=== PATIENT | male | born 1975 | race Caucasian/White ===

== ENCOUNTER 2016-08-14 22:37 | Emergency (ER) | payer BC ==
[2016-08-14 22:41] VITALS: BP 150/105; BMI 37.1
[2016-08-14] MEDS ORDERED: NS 1000 ML 1,000 ML IV ONE (23:02)
[2016-08-14] MEDS ORDERED: TORADOL 30 MG VIAL IVP ONE (23:02)
--- NOTE | 2016-08-14 23:02 | DR.GENAD ---
HPI - PCP Primary Care Physician: NFD - Complaint/Symptoms Chief Complaint Doctors Comments: Patient admits to myalgia, headache, chills, fever and sore throat for three days Chief Complaint:: BODY ACHES, FEVER, HEADACHE , SORE THROAT, CHEST CONGESTION - Source History Provided: Patient - Mode of Arrival Mode of Arrival: Ambulatory - Timing Onset of Chief Complaint: 08/11/16 PMH - PMH Past Medical History: Yes Past Medical History: Kidney Stones Past Surgical History: Yes Surgical History: Lithotripsy - Family History History of Family Medical Conditions: No - Social History Type of Tobacco Use: None Does any household member use tobacco: No Alcohol Use: None Do you use any recreational Drugs:: No Lives With: Spouse Lives Where: Home - infectious screening Have you traveled outside the country in the last 6 months?: No Isolation: Standard ROS - Review of Systems Constitutional: No Symptoms Reported Eyes: No Symptoms Reported ENTM: No Symptoms Reported Respiratoy: No Symptoms Reported Cardiovascular: No Symptoms Reported Gastrointestinal/Abdominal: No Symptoms Reported Genitourinary: No Symptoms Reported Neurological: No Symptoms Reported Musculoskeletal: Other (myalgia) Integumentary: No Symptoms Reported Hematologic/Lymphatic: No Symptoms Reported Endocrine: No Symptoms Reported Psychiatric: No Symptoms Reported All Other Systems: Reviewed and Negative PE - Vital Signs Vitals: Temperature 99.4 F Pulse Rate 117 Respiratory Rate 18 Blood Pressure 150/105 O2 Sat by Pulse Oximetry 97 - General Limitations: No Limitations General Appearance: Alert, In No Apparent Distress - Head Head Exam: Normal Inspection, Atraumatic - Eyes Eye exam: Normal Appearance, PERRL, EOMI - ENT ENT Exam: Normal Exam External Ear Exam: Normal External Inspection TM/Canal Exam: Bilateral Normal Nose Exam: Normal Nose Exam, Sinus Tenderness Mouth Exam: Normal Inspection Throat Exam: Normal Inspection - Neck Neck Exam: Normal Inspection, Full ROM - Chest Chest Inspection: Normal Inspection, Symmetric Chest Wall Rise - Respiratory Respiratory Exam: Normal Lung Sounds Bilat Respiratory Exam: Bilateral Clear to Auscultation - Cardiovascular Cardiovascular Exam: Regular Rate, Normal Rhythm - Abdominal Exam Abdominal Exam: Normal Inspection, Normal Bowel Sounds Abdominal Tenderness: negative: RUQ, RLQ, LUQ, LLQ, Epigastrium, Suprapubic, Diffuse, Mild, Moderate, Severe, Other - Extremities Extremities Exam: Normal Inspection, Full ROM - Back Back Exam: Normal Inspection, Full ROM - Neurologic Neurological Exam: Alert, Oriented X3, CN II-XII Intact - Psychiatric Psychiatric Exam: Normal Affect, Normal Mood Course - Reevaluation 1st: Improved ROR - Labs Reviewed Laboratory Results Reviewed?: Yes (strep positive) Laboratory: Streptococcus Screen Positive (NEGATIVE) A 08/14/16 22:48 - Diagnosis Discharge Problem: Strep pharyngitis - Discharge Plan Condition: Stable - Follow ups/Referrals Follow ups/Referrals: NFD,None [Primary Care Provider] - 3 days - Instructions
[2016-08-14] MEDS ORDERED: NS 1000 ML 1,000 ML ONE (23:03)
[2016-08-14] MEDS ORDERED: TORADOL 30 MG VIAL ONE (23:03)
--- NOTE | 2016-08-14 23:22 | RAD ---
EXAM: Chest X-ray INDICATION: Cough COMPARISION: No prior TECHNIQUE: PA and Lat, 2 view FINDINGS: The lungs are clear and the lung volumes are within normal limits. No pleural effusion or pneumothor ax. The cardiac silhouette and mediastinum are normal. The regional skeleton is intact. IMPRESSION: Normal Chest X-Ray Reported By:
[2016-08-15] MEDS ORDERED: AMOXIL CAP 500 MG PO ONE ×2 (00:16→00:18)
== END 2016-08-15 00:47 | disposition home or self-care (01) ==
LOC: ER 22:51
DX: J02.0 Streptococcal pharyngitis (principal); J11.1 Influenza due to unidentified influenza virus with other respiratory manifestations
CPT/HCPCS: 71020; 87502; 87503; 87880; 96365; 96374; 99282; 99283; A4222; J1885

== ENCOUNTER 2020-12-30 18:05 | Observation (INO) ==
[2020-12-30 19:01] VITALS: BMI 35.5
--- NOTE | 2020-12-30 19:58 | DR.SOBA ---
HPI Time Seen Time Seen by Provider: 12/30/20 19:44 Primary Care Physician Primary Care Physician: SHEA HPI Comment HPI Comment: PATIENT IS 45YR OLD MALE IN ER WITH INCREASING SOB, PERSISTENT NAUSEA, VOMITING AND LOW O2 SAT. COVID 19 VIRUS POSITIVE SATURDAY, 4 DAYS AGO. RUNNING FEVER AT HOME. HE IS NOT HOLDING DOWN MEDICATIONS OR FLUID. DID HAVE KAITLIN E DIARRHEA THAT IS RESOLVING. PATIENT IS CONGESTED AND IS COUGHING. HIS CONDITION IS GETTING WORSE. Complaints Chief Complaint Doctors Comments: SOB, LOW O2 SAT ABDOMINAL PAIN, PERSISTENT NAUSEA, VOMITING. Chief Complaint:: PT AMBULATORY IN ED WITH C/O COVID POSITIVE SINCE SATURDAY AND WORSE TODAY. C/O SOB WITH LOW O2 SAT. COVID-19 Coronavirus risk:travel/contact w/high risk person: Yes Has patient experienced Coronavirus symptoms: Yes Coronavirus symptoms experienced: Fever, Coughing and Shortness of Breath Reviewed Nurses Notes Reviewed: Yes Source History Provided: Patient Mode of Arrival Mode of Arrival: Ambulatory Timing Onset of Chief Complaint: 12/26/20 Duration Duration: Days Context Onset:: At Rest PE Risk Factors:: None History of:: None Currently on:: Neither Prehospital Care:: None Modifying Factors Worsens:: Exertion and Lying Flat Improves:: Sitting Up Associated Signs and Symptoms Associated Signs and Symptoms: Fever, Cough, Nasal Congestion and Chest Pain If Chest Pain Quality: Sharp Location: Left Lower Chest and Substernal If Cough Cough: Nonproductive and Clear PMH PMH Past Medical History: Yes Past Medical History: Hypertension and Kidney Stones Past Surgical History: Yes Surgical History: Lithotripsy Family History History of Family Medical Conditions: Yes Family Medical History: ND, Coronary Artery Disease and Hypertension Social History Does patient currently use any type of tobacco product: No Have you used tobacco products in the last 12 months: No Type of Tobacco Use: None Does any household member use tobacco: No Alcohol Use: None Do you use any recreational Drugs:: No Lives With: Family Lives Where: Home Travel Risk Coronavirus risk:travel/contact w/high risk person: Yes Has patient experienced Coronavirus symptoms: Yes Coronavirus symptoms experienced: Fever, Coughing and Shortness of Breath Infectious screening In the last 2 months have you had wt loss of >10#?: NO Have you had fever, night sweats or hemotysis?: No Have you traveled outside the country in the last 6 months?: No Isolation: Droplet ROS Review of Systems Constitutional: See HPI, Fever, Weakness and Fatigue Eyes: No Symptoms Reported and See HPI ENTM: See HPI, Nose Discharge and Nose Congestion Respiratoy: See HPI, Non-Productive Cough and Short of Breath; negative Wheezing Cardiovascular: See HPI and Chest Pain Gastrointestinal/Abdominal: See HPI, Abdominal Pain, Nausea and Vomiting Genitourinary: No Symptoms Reported and See HPI; negative Dysuria, Frequency and Hematuria Neurological: See HPI, Headache and Weakness; negative Dizziness Musculoskeletal: See HPI and Muscle Pain; negative Back Pain Integumentary: No Symptoms Reported and See HPI; negative Change in Color, Rash and Juandice Hematologic/Lymphatic: No Symptoms Reported and See HPI; negative Easy Bruising and Swollen Glands Endocrine: No Symptoms Reported and See HPI; negative Increased Thirst and Increased Urine Psychiatric: No Symptoms Reported and See HPI All Other Systems: Reviewed and Negative PE Vital Signs Vitals: Temperature 97.8 F Pulse Rate [Right] 97 Pulse Rate 119 Respiratory Rate 26 Blood Pressure [Right Arm] 182/93 Blood Pressure 117/72 O2 Sat by Pulse Oximetry 91 General Limitations: No Limitations General Appearance: Alert and In No Apparent Distress Head Head Exam: Normal Inspection Eyes Eye exam: Normal Appearance and PERRL; negative Scleral Icterus and Conjunctival Injection ENT ENT Exam: Normal Exam, Normal Oropharynx, Normal External Ear Exam and TM's Normal Bilaterally Neck Neck Exam: Normal Inspection and Trachea Midline; negative Tenderness and Lymphadenopathy Chest Chest Inspection: Normal Inspection and Symmetric Chest Wall Rise; negative Tenderness Respiratory Respiratory Exam: Normal Lung Sounds Bilat; negative Accessory Muscle Use, Chest Wall Tenderness and Respiratory Distress Respiratory Exam: Bilateral: Rhonchi and Lower: Rhonchi Cardiovascular Cardiovascular Exam: Regular Rate, Normal Rhythm and Normal Heart Sounds; negative Systolic Murmur and Diastolic Murmur Abdominal Exam Abdominal Exam: Normal Bowel Sounds, Soft and Tenderness Abdominal Tenderness: Diffuse and Moderate Extremities Extremities Exam: Normal Inspection and Normal Capillary Refill Back Back Exam: Normal Inspection; negative (R) CVA Tenderness and (L) CVA Tenderness Neurologic Neurological Exam: Alert and Oriented X3; negative Motor Sensory Deficit Psychiatric Psychiatric Exam: Normal Affect and Normal Mood Skin Skin Exam: Warm, Dry, Intact and Normal Color MDM Additional Information Obtained Additional Information Obtained From: Old Records Differential Diagnosis Differential Diagnosis: Bronchitis, Hyponatremia, Mycardial Infarction, Pneumonia, Pneumothorax, Pulmonary embolism, Respiratory Insufficiency, Sinusitis and URI Differential Diagnosis Comment:: ABDOMINAL PAIN, BOWEL OBST. UTI, DIVERTICULITIS. COURSE Treatment Treatment: SEE ORDERS. Education/Counseling Education/Counseling: Patient and Family Educated On: Diagnosis and Needs for Follow Up ROR Labs Reviewed Laboratory Results Reviewed?: Yes Result Diagrams: 12/30/20 20:15 12/30/20 20:15 Laboratory: WBC 7.3 X10^3/uL (3.6-10.0) 12/30/20 20:15 RBC 5.69 X10^6/uL (4.7-6.0) 12/30/20 20:15 Hgb 15.9 g/dL (13.5-18.0) 12/30/20 20:15 Hct 46.8 % (42.0-54.0) 12/30/20 20:15 MCV 82.3 fL (80.0-100.0) 12/30/20 20:15 MCH 27.9 pg (27.0-34.0) 12/30/20 20:15 MCHC 33.9 g/dL (33.0-35.0) 12/30/20 20:15 RDW 14.7 % (11.6-16.5) 12/30/20 20:15 Plt Count 153 X10^3/uL (150.0-450.0) 12/30/20 20:15 MPV 9.0 fL (7.4-11.0) 12/30/20 20:15 Neut % (Auto) 84.8 % (42.0-75.0) H 12/30/20 20:15 Lymph % (Auto) 9.9 % (21.0-51.0) L 12/30/20 20:15 [place] % (Auto) 5.1 % (0.0-13.0) 12/30/20 20:15 Eos % (Auto) 0.0 % (0.9-2.9) L 12/30/20 20:15 Baso % (Auto) 0.2 % (0.2-1.0) 12/30/20 20:15 Neut # (Auto) 6.2 x10^3/uL (2.2-4.8) H 12/30/20 20:15 Lymph # (Auto) 0.7 X10^3/uL (1.3-2.9) L 12/30/20 20:15 [place] # (Auto) 0.4 x10^3/uL (0.3-0.8) 12/30/20 20:15 Eos # (Auto) 0.0 x10^3/uL (0.0-0.2) 12/30/20 20:15 Baso # (Auto) 0.0 X10^3/uL (0.0-0.1) 12/30/20 20:15 Absolute Nucleated RBC 0.0 /100WBC 12/30/20 20:15 D-Dimer 0.69 ug/ml (0.0-0.57) H* 12/30/20 20:15 Sample Site Lr 12/30/20 20:30 ABG pH 7.490 (7.35-7.45) H 12/30/20 20:30 ABG pCO2 37.0 mmHg (35.0-45.0) 12/30/20 20:30 ABG pO2 61.0 mmHg (80.0-100.0) L 12/30/20 20:30 ABG HCO3 28.2 mmol/L (22-26) H 12/30/20 20:30 ABG O2 Saturation 93.0 % (90-100) 12/30/20 20:30 ABG Base Excess 4.7 mmol/L (-2.0-2.0) H 12/30/20 20:30 Aris Test Pos 12/30/20 20:30 A-a Gradient 42.0 mmHg 12/30/20 20:30 FiO2 21 12/30/20 20:30 Blood Gas Comments Jami well ae 12/30/20 20:30 Sodium 136 mmol/L (136-145) 12/30/20 20:15 Corrected Sodium 137 mmol/L (136-145) 12/30/20 20:15 Potassium 4.0 mmol/L (3.5-5.1) 12/30/20 20:15 Chloride 98 mmol/L (98-107) 12/30/20 20:15 Carbon Dioxide 29.3 mmol/L (21-32) 12/30/20 20:15 BUN 15 mg/dL (7-18) 12/30/20 20:15 Creatinine 1.27 mg/dL (0.70-1.30) 12/30/20 20:15 Est GFR (MDRD) Af Amer > 60 (>60) 12/30/20 20:15 Est GFR (MDRD) Non-Af > 60 (>60) 12/30/20 20:15 Glucose 162 mg/dL (65-99) H 12/30/20 20:15 Calcium 8.4 mg/dL (8.5-10.1) L 12/30/20 20:15 Corrected Calcium 9.2 mg/dL (8.5-10.1) 12/30/20 20:15 Ferritin 588 ng/mL (26-388) H 12/30/20 20:15 Total Bilirubin 0.40 mg/dL (0.2-1.0) 12/30/20 20:15 AST 60 Units/L (15-37) H 12/30/20 20:15 ALT 90 Units/L (12-78) H 12/30/20 20:15 Alkaline Phosphatase 84 Units/L (46-116) 12/30/20 20:15 Creatine Kinase 63 Units/L (39-308) 12/30/20 20:15 CK-MB (CK-2) < 1.0 ng/mL (0-4.0) 12/30/20 20:15 CK/CKMB % Calc 1.6 % (<4) 12/30/20 20:15 Troponin I < 0.02 ng/mL (0-1.5) 12/30/20 20:15 C-Reactive Protein 66.10 mg/L (0-3.0) H 12/30/20 20:15 B-Natriuretic Peptide 38.4 pg/mL (0-79) 12/30/20 20:15 Total Protein 7.9 g/dL (6.4-8.2) 12/30/20 20:15 Albumin 3.0 g/dL (3.4-5.0) L 12/30/20 20:15 Globulin 4.9 g/dL (2.5-4.5) H 12/30/20 20:15 Albumin/Globulin Ratio 0.6 Ratio (1.1-2.1) L 12/30/20 20:15 Amylase 52 Units/L (25-115) 12/30/20 20:15 Lipase 218 Units/L (73-393) 12/30/20 20:15 Specimen Type Clean catch urine 12/30/20 21:05 Urine Color Yellow (YELLOW) 12/30/20 21:05 Urine Appearance Clear (CLEAR) 12/30/20 21:05 Urine pH 6.5 (5.0 - 8.0) 12/30/20 21:05 Ur Specific Walker 1.015 (1.000-1.030) 12/30/20 21:05 Urine Protein 3+ (NEGATIVE) 12/30/20 21:05 Urine Glucose (UA) Negative (NEGATIVE) 12/30/20 21:05 Urine Ketones 1+ (NEGATIVE) 12/30/20 21:05 Urine Occult Blood 1+ (NEGATIVE) 12/30/20 21:05 Urine Nitrite Negative (NEGATIVE) 12/30/20 21:05 Urine Bilirubin Negative (NEGATIVE) 12/30/20 21:05 Urine Urobilinogen 2+ (NORMAL) 12/30/20 21:05 Ur Leukocyte Esterase Negative (NEGATIVE) 12/30/20 21:05 Urine RBC 0-2 /HPF (0-3) 12/30/20 21:05 Urine WBC None seen /HPF (0-5) 12/30/20 21:05 Ur Squamous Epith Cells Few /HPF (NEGATIVE) 12/30/20 21:05 Urine Bacteria Trace /HPF (NEGATIVE) 12/30/20 21:05 Urine Mucus Moderate /HPF (NEGATIVE) 12/30/20 21:05 Ur Culture Indicated? No/not indicated 12/30/20 21:05 SARS-CoV-2 (PCR) Positive (NEGATIVE) A 12/30/20 21:20 Influenza Type A (PCR) Negative (NEGATIVE) 12/30/20 21:20 Influenza Type B (PCR) Negative (NEGATIVE) 12/30/20 21:20 RSV (PCR) Negative (NEGATIVE) 12/30/20 21:20 XRAY XRAY Interpreted by: Radiologist (REPORTS NOTED AND DISCUSSED WITH PATIENT.) and Self Opioid Opioid Risk Tool Age (Amador box if 16-45): Yes History of Preadolescent Sexual Abuse: No Total: 1 Total Score Risk Category: Low Risk Copyright: Kamlesh FIORE predicting aberrant behaviors Diagnosis Discharge Problem: COVID-19 virus infection Instructions Forms: Precautions for COVID19 Patient Portal Social Distancing
[2020-12-30] MEDS ORDERED: NS 1000 ML 1,000 ML IV ONE ×2 (20:01→23:52)
[2020-12-30] MEDS ORDERED: DEMEROL INJ IVP ONE (20:02)
[2020-12-30] MEDS ORDERED: ZOFRAN INJ 4 MG VIAL IVP ONE ×2 (20:02→23:57)
[2020-12-30] MEDS ORDERED: PEPCID 20 MG IV PREMIX* 20 MG/50 ML BAG IV ONE ×2 (20:03→20:25)
[2020-12-30] MEDS ORDERED: NS 1000 ML 1,000 ML ONE ×2 (20:24→23:56)
[2020-12-30] MEDS ORDERED: DEMEROL INJ ONE (20:24)
[2020-12-30] MEDS ORDERED: ZOFRAN INJ 4 MG VIAL ONE ×2 (20:24→23:57)
[2020-12-30 20:33] LABS: BASOPHILS % (AUTO) 0.2 % (0.2-1.0); HEMATOCRIT 46.8 % (42.0-54.0); HEMOGLOBIN 15.9 g/dL (13.5-18.0); LYMPHOCYTES # (AUTO) 0.7 X10^3/uL (1.3-2.9); LYMPHOCYTES % (AUTO) 9.9 % (21.0-51.0); MEAN CORPUSCULAR HEMOGLOBIN 27.9 pg (27.0-34.0); MEAN CORPUSCULAR HGB CONC 33.9 g/dL (33.0-35.0); MEAN CORPUSCULAR VOLUME 82.3 fL (80.0-100.0); MONOCYTES # (AUTO) 0.4 x10^3/uL (0.3-0.8); MONOCYTES % (AUTO) 5.1 % (0.0-13.0); NEUTROPHILS # (AUTO) 6.2 x10^3/uL (2.2-4.8); NEUTROPHILS % (AUTO) 84.8 % (42.0-75.0); PLATELET COUNT 153 X10^3/uL (150.0-450.0); RED BLOOD COUNT 5.69 X10^6/uL (4.7-6.0); RED CELL DISTRIBUTION WIDTH 14.7 % (11.6-16.5); WHITE BLOOD COUNT 7.3 X10^3/uL (3.6-10.0)
[2020-12-30 20:37] LABS: ABG ALLEN TEST POS; ABG BASE EXCESS 4.7 mmol/L (-2.0-2.0); ABG HCO3 28.2 mmol/L (22-26)
--- NOTE | 2020-12-30 20:49 | RAD ---
STUDY: FRONTAL VIEW CHESTCOMPARISON: NoneHISTORY: PT AMBULATORY IN ED WITH C/O COVID POSITIVE SINCE SATURDAY AND WORSE TODAY. C/O SOB WITH LOW O2 SATFINDINGS:No focal consolidation is seen.The heart size is within normal limits.The mediastinum is unremarkable.There is no evidence of pleural effusion or gross pneumothorax.The trachea is midline.IMPRESSION:1. No focal consolidation is seen.2. The heart size is normal.Electronically signed by: Antwan Benson (Dec 30, 2020 20:46:40)
[2020-12-30 20:52] LABS: ALANINE AMINOTRANSFERASE 90 Units/L (12-78); ALKALINE PHOSPHATASE 84 Units/L (46-116); AMYLASE 52 Units/L (25-115); ASPARTATE AMINO TRANSFERASE 60 Units/L (15-37); BLOOD UREA NITROGEN 15 mg/dL (7-18); CALCIUM 8.4 mg/dL (8.5-10.1); CARBON DIOXIDE 29.3 mmol/L (21-32); CHLORIDE 98 mmol/L (98-107); CKMB % 1.6 % (<4); COR CA(FOR HYPOALB) 9.2 mg/dL (8.5-10.1); COR NA(FOR HYPERGLY) 137 mmol/L (136-145); CREATINE KINASE 63 Units/L (39-308); CREATINE KINASE MB < 1.0 ng/mL (0-4.0); CREATININE 1.27 mg/dL (0.70-1.30); LIPASE 218 Units/L (73-393); SODIUM 136 mmol/L (136-145); TOTAL PROTEIN 7.9 g/dL (6.4-8.2); TROPONIN I < 0.02 ng/mL (0-1.5); eGFR NON BLACK RACES > 60 (>60)
[2020-12-30 21:28] LABS: BILIRUBIN,URINE NEGATIVE (NEGATIVE); BLOOD/HEMOGLOBIN,URINE 1+ (NEGATIVE); GLUCOSE, URINE NEGATIVE (NEGATIVE); KETONES,URINE 1+ (NEGATIVE); LEUKOCYTE ESTERASE ,URINE NEGATIVE (NEGATIVE); NITRITES,URINE NEGATIVE (NEGATIVE); PH,URINE 6.5 (5.0 - 8.0); PROTEIN,URINE 3+ (NEGATIVE); UROBILINOGEN,URINE 2+ (NORMAL)
[2020-12-30 21:36] LABS: APPEARANCE,URINE CLEAR (CLEAR); COLOR,URINE YELLOW (YELLOW)
[2020-12-30 21:37] LABS: BACTERIA,URINE TRACE /HPF (NEGATIVE); MUCUS,URINE MODERATE /HPF (NEGATIVE); RBC,URINE 0-2 /HPF (0-3); SQUAMOUS EPITHELIAL CELL,UR FEW /HPF (NEGATIVE)
--- NOTE | 2020-12-31 00:53 | CT ---
STUDY: CT ABDOMEN AND PELVIS WITHOUT IV CONTRASTCOMPARISON: NoneTECHNIQUE: Axial images were obtained of the abdomen and pelvis without IV contrast. Sagittal and coronal reformatted images were provided. All images were reviewed in a variety of windows and levels.RADIATION REDUCTION TECHNIQUE: Automated exposure control, adjustment of the mA or kV according to patient size, or iterative reconstruction techniques were used.HISTORY: abd painFINDINGS:Please note that lack of IV contrast does limit evaluation of the soft tissues and vascular detail. Exam is limited due to motion.The visualized lower lung zones demonstrates scattered areas of ground-glass opacities involving the right and left lung base which is worrisome for an infectious process. The heart size is within normal limits. There is no evidence of a pericardial effusion.The spleen, pancreas, adrenal glands, and kidneys are grossly unremarkable. Gallstone is noted. Diffuse steatosis is noted.Bilateral nonobstructing nephrolithiasis is noted.The stomach, small bowel, and colon are grossly unremarkable. A few scattered diverticula are seen without evidence of diverticulitis. There is a prominent calcification located at the origin of the appendix. There is no periappendiceal inflammatory changes to suggest secondary signs of acute appendicitis. The widest diameter of the appendix is 6 mm which is at the upper cutoff of normal.There is no evidence of retroperitoneal or mesenteric lymphadenopathy.The visualized bones demonstrate degenerative changes. There are no concerning lytic or blastic lesions identified.IMPRESSION:- Imaging features in the bilateral lower lung bases are worrisome for an infectious process. Correlation with laboratory viral testing may be obtained as clinically indicated.- Bilateral nonobstructing nephrolithiasis is noted.- Diffuse steatosis is noted- Gallstone is presentElectronically signed by: Antwan Benson (Dec 31, 2020 00:51:00)
[2020-12-31] MEDS ORDERED: COMPAZINE INJ IVP ONE (01:59)
[2020-12-31] MEDS ORDERED: NS 100 ML IV 100 ML IV ONE (02:00)
[2020-12-31] MEDS ORDERED: NS 100 ML IV 100 ML ONE ×3 (02:00→14:48)
[2020-12-31] MEDS ORDERED: COMPAZINE INJ ONE (02:02)
--- NOTE | 2020-12-31 02:53 | CT ---
STUDY: CTA CHEST WITH IV CONTRASTCOMPARISON: NoneTECHNIQUE: axial images were acquired of the chest with IV contrast for a CT angiogram. Coronal and sagittal images were provided. All images were reviewed in a variety of windows and levels. 3D 8 mm thick MIPS images were provided.RADIATION REDUCTION TECHNIQUE: Automated exposure control, Adjustment of the mA and/or kV according to patient size, or iterative reconstruction techniques were used. 8 mm thick axial MIPS images were provided.HISTORY: ELEVATED D-DIMER, SOBFINDINGS:CHEST:THYROID GLANDS: The thyroid gland is unremarkable.HEART AND VESSELS: The heart size is within normal limits.There is no evidence of pericardial effusion. Thoracic aorta is normal size without evidence of an aneurysm or dissection.Main pulmonary artery size is within normal limits. There are no filling defect seen within the visualized pulmonary arteries to suggest a pulmonary embolism.LYMPH NODES: There is no evidence of axillary, mediastinal, or hilar lymphadenopathy.AIRWAY: The trachea and mainstem bronchi are patent.No intraluminal lesions are seen.LUNGS: Demonstrates scattered areas of ground-glass opacities involving the subpleural surface and major fissures.ESOPHAGUS: The esophagus is grossly unremarkable.BONES: The visualized bones demonstrate degenerative changes. There are no concerning lytic or blastic lesions identified.UPPER ABDOMINAL STRUCTURES: The visualized upper abdominal structures demonstrates gallstones. Steatosis is noted.IMPRESSSION:1. No evidence of pulmonary embolism, thoracic aortic aneurysm, or dissection2. Heart size is normal and there is no evidence of pericardial effusion3. The above findings demonstrate COMMON CT imaging features of COVID-19 pneumonia. However, differential diagnosis should include, but is not limited to, influenza pneumonia, organizing pneumonia, or possible drug toxicity. Clinical correlation with laboratory viral testing may be obtained as clinically indicated. Reference: Gabriel et al. Radiology. 2020Electronically signed by: Antwan Benson (Dec 31, 2020 02:51:36)
[2020-12-31] MEDS ORDERED: NS 1000 ML 1,000 ML ONE (05:48)
[2020-12-31] MEDS: NS 1000 ML 1,000 ML IV SCH ×2 (05:57→21:36)
[2020-12-31] MEDS ORDERED: TORADOL 30 MG VIAL ONE (06:47)
[2020-12-31] MEDS ORDERED: TORADOL 30 MG VIAL IVP ONE (06:50)
[2020-12-31] MEDS ORDERED: ZOFRAN INJ 4 MG VIAL IVP PRN (07:06)
[2020-12-31] MEDS ORDERED: TORADOL 30 MG VIAL IVP PRN (07:06)
[2020-12-31] MEDS ORDERED: TUSSIONEX PENNKINETIC SUSP PO PRN (07:06)
[2020-12-31] MEDS ORDERED: REMDESIVIR 200 MG in NS 250 ML IV 250 ML IV ONE (07:06)
[2020-12-31] MEDS ORDERED: REMDESIVIR IV ONE (07:33)
[2020-12-31] MEDS ORDERED: NS 250 ML IV 250 ML IV ONE ×2 (07:34→11:20)
[2020-12-31] MEDS ORDERED: SOLU-Medrol 40 MG VIAL IVP SCH (08:00)
[2020-12-31] MEDS ORDERED: TRICOR TAB 160 MG ONE (08:07)
[2020-12-31] MEDS ORDERED: ZINC SULFATE ONE (08:07)
[2020-12-31] MEDS ORDERED: ZOSYN VIAL 3.375 GRAMS IV ONE ×2 (08:07→16:18)
[2020-12-31] MEDS ORDERED: VITAMIN D3 125 mcg (5,000 UNITS) ONE (08:07)
[2020-12-31] MEDS ORDERED: SOLU-Medrol 40 MG VIAL ONE ×2 (08:07→14:48)
[2020-12-31] MEDS ORDERED: ROBITUSSIN DM ONE ×2 (08:07→14:48)
[2020-12-31] MEDS ORDERED: ROCEPHIN 1 GRAM IV PREMIX 1 G/50 ML IV.SOLN. IV ONE (08:08)
[2020-12-31] MEDS ORDERED: PEPCID 20 MG IV PREMIX* 20 MG/50 ML BAG IV ONE (08:08)
[2020-12-31] MEDS ORDERED: NS 100 ML IV + SPIKE MINIBAG* 100 ML IV ONE ×2 (08:08→16:18)
[2020-12-31] MEDS ORDERED: NS 50 ML IV 50 ML IV ONE (08:09)
[2020-12-31] MEDS ORDERED: ASCORBIC ACID INJ MULTI-DOSE VIAL IV ONE ×2 (08:09→14:47)
[2020-12-31] MEDS ORDERED: LOVENOX INJ 30 MG SYR SC ONE (08:10)
[2020-12-31] MEDS: TRICOR TAB 160 MG PO SCH (08:30)
[2020-12-31] MEDS: ZINC SULFATE PO SCH ×2 (08:30→21:37)
[2020-12-31] MEDS: VSL#3 PO SCH (09:00)
[2020-12-31] MEDS ORDERED: VITAMIN A PO SCH (09:00)
[2020-12-31] MEDS ORDERED: ROCEPHIN 1 GRAM IV PREMIX 1 G/50 ML IV.SOLN. IV SCH (09:00)
[2020-12-31] MEDS ORDERED: PEPCID 20 MG IV PREMIX* 20 MG/50 ML BAG IV SCH (09:00)
[2020-12-31] MEDS: ROBITUSSIN DM PO SCH ×3 (09:00→20:25)
[2020-12-31] MEDS ORDERED: VITAMIN D (1.25MG) PO SCH (09:00)
[2020-12-31] MEDS: TOPROL XL PO SCH (09:00)
[2020-12-31] MEDS: ASCORBIC ACID INJ MULTI-DOSE VIAL 1,500 MG in NS 100 ML IV 100 ML IV SCH ×3 (09:10→20:24)
[2020-12-31] MEDS: LOVENOX INJ 30 MG SYR SC SCH ×2 (09:27→21:36)
[2020-12-31] MEDS: ZOSYN VIAL 3.375 GRAMS 3.375 G in NS 100 ML IV + SPIKE MINIBAG* 100 ML IV SCH ×3 (09:30→21:37)
[2020-12-31] MEDS ORDERED: LEVSIN/MAALOX/LIDOC VISC PO PRN (10:48)
--- NOTE | 2020-12-31 10:52 | DR.H&P ---
H&P - History & Physical for Day of: H&P Date: 12/31/20 - Chief Complaint Chief Complaint: N/V, WEAKNESS, SOB, CCC COVID 19+ - History of Present Illness History of Present Illness: PT IS 45M ER ADMISSION WITH CO INCREASING SOB, PERSISTENT NAUSEA, VOMITING AND LOW O2 SAT. COVID 19 VIRUS POSITIVE SATURDAY, 4 DAYS AGO. RUNNING FEVER AT HOME. HE IS NOT HOLDING DOWN MEDICATIONS OR FLUID. DID HAVE SOME DIARRHEA THAT IS RESOLVING. PATIENT IS CONGESTED AND IS COUGHING. HIS CONDITION IS GETTING WORSE. - Past Medical History Past Medical History: Hypertension, Kidney Stones - Past Surgical History Surgical History: Lithotripsy - Family History Family Medical History: Hypertension - Social History Does patient currently use any type of tobacco product: No Have you used tobacco products in the last 12 months: No Type of Tobacco Use: None Does any household member use tobacco: No Alcohol Use: None Drug Use: None - Medications Home Medications: No Known Drug Allergies Allergy (Verified 12/30/20 19:04) CONTINUE taking the following medications albuterol sulfate 5 mg INHALATION Q4H PRN 12/30/20 [History] azithromycin 250 mg PO DAILY 12/30/20 [History] famotidine 20 mg PO BID 12/30/20 [History] ivermectin 12 mg PO DAILY 12/30/20 [History] methylprednisolone 4 mg PO DIRECTED 12/30/20 [History] metoprolol succinate 50 mg PO DAILY 12/30/20 [History] - Review of Systems Constitutional: Weakness, Malaise Eyes: No Symptoms Reported ENT: No Symptoms Reported Respiratory: Cough, Shortness of Breath, SOB with Excertion Cardiovascular: Chest Pain (WITH COUGH) Gastrointestinal: Nausea, Vomiting, Abdominal Pain, Diarrhea Genitourinary: No Symptoms Reported Musculoskeletal: No Symptoms Reported Skin: No Symptoms Reported Neurological: No Symptoms Reported - Physical Exam Vital Signs: Temperature 97.8 F Pulse Rate [Right] 81 Pulse Rate 119 Respiratory Rate 24 Blood Pressure [Right Arm] 169/90 Blood Pressure 117/72 O2 Sat by Pulse Oximetry 91 Oriented: Normal Eyes: Normal Ear: Normal Nose: Normal Throat: Normal Respiratory: Diminished Throughout Cardiovascular: Normal : Normal Auscultation: Bowel Sounds: Normal Palpation: Normal Tenderness: RUQ, Epigastric Skin: Decreased Turgur Musculoskeletal: Normal Psychiatric: Anxiety Affect: Anxious Speech Pattern: Clear, Appropriate - Assessment/Plan (1) Pneumonia due to COVID-19 virus Status: Acute Plan: ADMIT, COVID ISOLATION, IV ATBX. REMESIVIR, IV SOLUMEDROL. LOVENOX, CTA OF CHEST IN ER ON ADMISSION. RESP THERAPY, SUPPLEMENTAL O2, DUO NEBS. CARDIAC MONITORING, IV HYDRATIONN BP CONTROL. VERIFY HOME MEDICATION (2) COVID-19 virus infection Status: Acute (3) Acute gastritis Status: Acute (4) Hypertension Status: Acute - Allergies Allergies/Adverse Reactions: Allergies Allergy/AdvReac Type Severity Reaction Status Date / Time No Known Drug Allergies Allergy Verified 12/30/20 19:04
[2020-12-31 11:08] LABS: BASOPHILS % (AUTO) 0.2 % (0.2-1.0); HEMATOCRIT 44.9 % (42.0-54.0); HEMOGLOBIN 15.3 g/dL (13.5-18.0); LYMPHOCYTES # (AUTO) 0.9 X10^3/uL (1.3-2.9); LYMPHOCYTES % (AUTO) 12.9 % (21.0-51.0); MEAN CORPUSCULAR HEMOGLOBIN 27.7 pg (27.0-34.0); MEAN CORPUSCULAR HGB CONC 34.1 g/dL (33.0-35.0); MEAN CORPUSCULAR VOLUME 81.3 fL (80.0-100.0); MEAN PLATELET VOLUME 8.8 fL (7.4-11.0); MONOCYTES # (AUTO) 0.2 x10^3/uL (0.3-0.8); NEUTROPHILS # (AUTO) 5.6 x10^3/uL (2.2-4.8); NEUTROPHILS % (AUTO) 83.9 % (42.0-75.0); PLATELET COUNT 134 X10^3/uL (150.0-450.0); RED BLOOD COUNT 5.53 X10^6/uL (4.7-6.0); RED CELL DISTRIBUTION WIDTH 14.4 % (11.6-16.5); WHITE BLOOD COUNT 6.6 X10^3/uL (3.6-10.0)
[2020-12-31] MEDS ORDERED: BENADRYL INJ 50 MG VIAL ONE (11:20)
[2020-12-31] MEDS ORDERED: ZITHROMAX INJ 500 MG VIAL IV ONE (11:20)
[2020-12-31] MEDS ORDERED: PROTONIX INJ 40 MG VIAL ONE (11:20)
[2020-12-31 11:24] LABS: ALANINE AMINOTRANSFERASE 75 Units/L (12-78); ALBUMIN 2.7 g/dL (3.4-5.0); ALKALINE PHOSPHATASE 77 Units/L (46-116); ASPARTATE AMINO TRANSFERASE 45 Units/L (15-37); BLOOD UREA NITROGEN 12 mg/dL (7-18); CALCIUM 8.3 mg/dL (8.5-10.1); CARBON DIOXIDE 27.8 mmol/L (21-32); CHLORIDE 100 mmol/L (98-107); COR CA(FOR HYPOALB) 9.3 mg/dL (8.5-10.1); COR NA(FOR HYPERGLY) 138 mmol/L (136-145); CREATININE 1.06 mg/dL (0.70-1.30); SODIUM 137 mmol/L (136-145); TOTAL PROTEIN 7.6 g/dL (6.4-8.2); eGFR NON BLACK RACES > 60 (>60)
[2020-12-31] MEDS: BENADRYL INJ 50 MG VIAL IVP SCH ×2 (11:29→22:20)
[2020-12-31] MEDS: PROTONIX INJ 40 MG VIAL IVP SCH ×2 (11:30→20:26)
[2020-12-31 12:09] LABS: ABG ALLEN TEST POS; ABG BASE EXCESS 3.5 mmol/L (-2.0-2.0); ABG HCO3 27.8 mmol/L (22-26)
[2020-12-31] MEDS: ZITHROMAX INJ 500 MG VIAL 500 MG in NS 250 ML IV 250 ML IV SCH (14:13)
[2020-12-31] MEDS: SOLU-Medrol 125 MG VIAL IVP SCH ×2 (14:57→21:36)
[2020-12-31] MEDS: PROVENTIL NEB TX 0.083% 2.5MG/ 3ML IN PRN (20:36)
[2020-12-31] MEDS: PULMICORT NEB TX 0.5 MG NEB SCH (20:36)
[2020-12-31] MEDS: BROVANA IN SCH (20:36)
[2021-01-01] MEDS: ASCORBIC ACID INJ MULTI-DOSE VIAL 1,500 MG in NS 100 ML IV 100 ML IV SCH ×3 (02:04→15:58)
[2021-01-01 04:15] LABS: ABG HCO3 27.6 mmol/L (22-26)
[2021-01-01 04:16] LABS: ABG ALLEN TEST POS
[2021-01-01] MEDS: BENADRYL INJ 50 MG VIAL IVP SCH ×3 (05:18→17:44)
[2021-01-01] MEDS: SOLU-Medrol 125 MG VIAL IVP SCH ×2 (05:18→14:43)
[2021-01-01] MEDS: NS 1000 ML 1,000 ML IV SCH ×2 (05:18→13:24)
[2021-01-01] MEDS: ZOSYN VIAL 3.375 GRAMS 3.375 G in NS 100 ML IV + SPIKE MINIBAG* 100 ML IV SCH ×2 (05:19→14:44)
[2021-01-01 06:43] LABS: BASOPHILS % (AUTO) 0.1 % (0.2-1.0); HEMATOCRIT 43.1 % (42.0-54.0); HEMOGLOBIN 14.6 g/dL (13.5-18.0); LYMPHOCYTES # (AUTO) 0.8 X10^3/uL (1.3-2.9); LYMPHOCYTES % (AUTO) 15.8 % (21.0-51.0); MEAN CORPUSCULAR HEMOGLOBIN 27.6 pg (27.0-34.0); MEAN CORPUSCULAR HGB CONC 33.8 g/dL (33.0-35.0); MEAN CORPUSCULAR VOLUME 81.8 fL (80.0-100.0); MEAN PLATELET VOLUME 9.6 fL (7.4-11.0); MONOCYTES # (AUTO) 0.2 x10^3/uL (0.3-0.8); MONOCYTES % (AUTO) 3.7 % (0.0-13.0); NEUTROPHILS # (AUTO) 4.1 x10^3/uL (2.2-4.8); NEUTROPHILS % (AUTO) 80.4 % (42.0-75.0); PLATELET COUNT 167 X10^3/uL (150.0-450.0); RED BLOOD COUNT 5.28 X10^6/uL (4.7-6.0); RED CELL DISTRIBUTION WIDTH 14.5 % (11.6-16.5); WHITE BLOOD COUNT 5.1 X10^3/uL (3.6-10.0)
[2021-01-01 07:04] LABS: ALANINE AMINOTRANSFERASE 68 Units/L (12-78); ALBUMIN 2.4 g/dL (3.4-5.0); ALKALINE PHOSPHATASE 72 Units/L (46-116); ASPARTATE AMINO TRANSFERASE 34 Units/L (15-37); BLOOD UREA NITROGEN 18 mg/dL (7-18); CALCIUM 8.5 mg/dL (8.5-10.1); CARBON DIOXIDE 30.1 mmol/L (21-32); CHLORIDE 105 mmol/L (98-107); COR CA(FOR HYPOALB) 9.8 mg/dL (8.5-10.1); COR NA(FOR HYPERGLY) 146 mmol/L (136-145); CREATININE 1.13 mg/dL (0.70-1.30); SODIUM 143 mmol/L (136-145); TOTAL PROTEIN 7.3 g/dL (6.4-8.2); eGFR NON BLACK RACES > 60 (>60)
[2021-01-01] MEDS ORDERED: NS 100 ML IV 100 ML ONE (07:08)
[2021-01-01] MEDS: PROTONIX INJ 40 MG VIAL IVP SCH (08:07)
[2021-01-01] MEDS: ROBITUSSIN DM PO SCH ×3 (08:11→17:06)
[2021-01-01] MEDS: TOPROL XL PO SCH (08:12)
[2021-01-01] MEDS: VSL#3 PO SCH (08:13)
[2021-01-01] MEDS: TRICOR TAB 160 MG PO SCH (08:13)
[2021-01-01] MEDS: ZINC SULFATE PO SCH (08:13)
[2021-01-01] MEDS: BROVANA IN SCH (09:00)
[2021-01-01] MEDS: PULMICORT NEB TX 0.5 MG NEB SCH (09:00)
[2021-01-01] MEDS: PROVENTIL NEB TX 0.083% 2.5MG/ 3ML IN PRN (09:00)
[2021-01-01] MEDS ORDERED: REMDESIVIR 100 MG in NS 250 ML IV 250 ML IV SCH (09:00)
[2021-01-01] MEDS: ZITHROMAX INJ 500 MG VIAL 500 MG in NS 250 ML IV 250 ML IV SCH (09:47)
[2021-01-01] MEDS: LOVENOX INJ 30 MG SYR SC SCH (10:11)
--- NOTE | 2021-01-01 12:57 | RAD ---
HISTORYCOVID-19STUDYPortable AP [id number] are subtle, bilateral patchy areas of subpleural airspace involvement which have increased since 2 days prior. Heart size remains normal. No pleural fluid or pneumothorax seen.IMPRESSIONInterval increase in bilateral infiltrates compatible with atypical pneumonia pattern.Electronically signed by: LESLIE HAWKINS (Jan 01, 2021 12:55:04)
[2021-01-01 16:24] VITALS: BP 157/82
[2021-01-02] MEDS ORDERED: VITAMIN D3 125 mcg (5,000 UNITS) PO SCH (09:00)
[2021-01-02] MEDS ORDERED: VITAMIN A PO SCH (09:00)
== END 2021-01-01 18:58 | disposition home or self-care (01) ==
LOC: ER 18:56 → OBS 18:56 → MED/SURG 12-31 17:29
PROVIDERS: ADMIT Internal Medicine; ATTEND Internal Medicine
DX: R10.84 Generalized abdominal pain; N20.0 Calculus of kidney; R79.89 Other specified abnormal findings of blood chemistry; R79.1 Abnormal coagulation profile; K80.20 Calculus of gallbladder without cholecystitis without obstruction; R79.82 Elevated C-reactive protein (CRP); J12.82 Pneumonia due to coronavirus disease 2019; I10 Essential (primary) hypertension; K29.00 Acute gastritis without bleeding; R06.02 Shortness of breath; U07.1 COVID-19